=== PATIENT | male | born 1930 | race Two or more races ===

== ENCOUNTER 2016-10-25 07:58 | Emergency (ER) | payer MEDICARE, MEDICAID ==
[2016-10-25 09:27] VITALS: BP 156/46
[2016-10-25] MEDS ORDERED: diphenhdrAMINE HCL 50 MG/1 ML VL IM ONE (10:45)
[2016-10-25] MEDS ORDERED: methylPREDNISolone SOD SUCC 125 MG/2 ML VL IM ONE (10:45)
[2016-10-25 10:50] LABS: DEFINITIVE VIEW TRANSMISSION; Hematocrit 44.4 % (41.0-53.0); Hemoglobin 15.1 g/dL (13.5-17.5); Mean Corpuscular Hemoglobin 33.5 pg (28.0-32.0); Mean Corpuscular Hgb Conc. 34.1 g/dL (32.0-36.0); Mean Corpuscular Volume 98.1 fL (80.0-100.0); Platelet Count (auto) 210 10^3/uL (140-450); Red Cell Distribution Width 14.3 % (11.6-16.0); White Blood Cell 6.6 10^3/uL (4.4-10.8)
[2016-10-25 10:54] LABS: Metamyelocytes % 0; Myelocytes % 0; Promyelocytes % 0; Reactive Lymphocytes 0
[2016-10-25 11:11] LABS: Platelet Estimate Adequate
[2016-10-25 11:12] LABS: RBC Morphology Normal
[2016-10-25 11:20] LABS: Albumin 3.9 g/dL (3.4-5.0)
[2016-10-25 11:46] LABS: Bilirubin, Total 0.5 mg/dL (0.2-1.0)
[2016-10-25 11:49] LABS: Potassium 5.7 mmol/L (3.5-5.1)
[2016-10-26] MEDS ORDERED: LISI40TA PO (12:09)
[2016-10-26] MEDS ORDERED: HYDR-3682 PO (12:09)
[2016-10-26] MEDS ORDERED: SIMV-8 PO (12:09)
[2016-10-26] MEDS ORDERED: MECL12.554 PO (12:09)
[2016-10-26] MEDS ORDERED: WARF2.5T39 PO (12:09)
[2016-10-26] MEDS ORDERED: TRIA75TA55 PO (12:09)
[2016-10-26] MEDS ORDERED: OMEP20CA74 PO (12:09)
[2016-10-26] MEDS ORDERED: WARF5TAB71 PO (12:09)
[2016-10-26] MEDS ORDERED: GLIP-115 PO (12:09)
== END 2016-10-25 11:29 | disposition home or self-care (01) ==
LOC: ER 07:58
DX: R21 Rash and other nonspecific skin eruption (principal); I10 Essential (primary) hypertension; E11.9 Type 2 diabetes mellitus without complications
CPT/HCPCS: 36415; 80053; 85007; 85027